=== PATIENT | male | born 1985 ===

== ENCOUNTER 2022-09-19 22:08 | Emergency (ER) | payer SELFPAY ==
[2022-09-19 22:13] LABS: Glucose Point of Care 372 mg/dl (65-105)
--- NOTE | 2022-09-19 22:16 | PC.NURSE ---
patient left without being seen at 2215. Patient states he is going to an outpatient pharmacy to obtain an insulin needle and will not need to be seen by an ER provider.
== END 2022-09-19 22:15 | disposition left against medical advice (07) ==
PROVIDERS: Emergency Provider Emergency Medicine
DX: Z53.21 Procedure and treatment not carried out due to patient leaving prior to being seen by health care provider (principal)
CPT/HCPCS: 82948; 99199